=== PATIENT | male | born 1985 | race Caucasian/White ===

== ENCOUNTER 2017-08-03 20:44 | Emergency (ER) | payer OTHER | END 2017-08-03 21:48 | disposition other institution (70) | LOC: ED 20:44 | DX: Z02.89 Encounter for other administrative examinations (principal) ==

== ENCOUNTER 2017-08-03 20:44 | Emergency (ER) | payer SELFPAY ==
[2017-08-03 21:48] VITALS: BP 153/93
== END 2017-08-03 21:48 | disposition other institution (70) ==
LOC: ED 20:44
DX: Z02.89 Encounter for other administrative examinations (principal); R07.89 Other chest pain; R10.11 Right upper quadrant pain